=== PATIENT | female | born 1955 | race Caucasian/White ===

== ENCOUNTER 2016-08-27 09:55 | Outpatient (CLI) | payer MEDICARE, SELFPAY ==
[2016-08-27 11:22] LABS: #Eosinphils 0.1 thou/uL (0.0-0.7); #Lymphocytes 1.9 thou/uL (1.20-3.40); #Monocytes 0.4 thou/uL (0.11-0.59); #Neutrophils 3.7 thou/uL (1.40-6.50); %Basophils 0.6 % (0.0-1.0); %Eosinophils 2.4 % (0.0-10.0); %Lymphocytes 30.6 % (21.0-51.0); %Neutrophils 60.5 % (42.0-75.0); Hemoglobin 15.4 g/dL (12.0-16.0); Mean Corpuscular HGB CONC 33.3 g/dL (32.0-36.0); Mean Corpuscular Hemoglobin 29.5 pg (27.0-31.0); Mean Corpuscular Volume 88.7 fl (81.0-99.0); Mean Platelet Volume 7.4 fL (7.4-10.4); Platelet Count 268 thou/uL (130-400); RBC Distribution Width 13.4 % (11.5-14.5); Red Blood Cell (RBC) Count 5.23 mill/uL (4.20-5.40); White Blood Cell (WBC) Count 6.2 thou/uL (4.8-10.8)
[2016-08-27 11:39] LABS: ALT (SGPT) 28 U/L (0-55); AST (SGOT) 27 U/L (5-34); Alkaline Phosphatase 97 U/L (40-150); Anion Gap 12 mmol/L (10-20); BUN (Urea Nitrogen) 20 mg/dL (9.8-20.1); Bilirubin, Total 0.4 mg/dL (0.2-1.2); Calc. Creatinine Clearance 0 mL/min (70-130); Calcium 9.8 mg/dL (7.8-10.44); Carbon Dioxide 33 mmol/L (22-29); Cardiac Risk 4.7 (Less than 4.5); Chloride 104 mmol/L (98-107); Cholesterol 163 mg/dL (< 200 Desired); Estimated GFR-MDRD 65; Globulin 3.1 g/dL (2.4-3.5); Glucose 99 mg/dL (70-105); HDL Cholesterol 35 mg/dL (>60 Neg Risk); LDL Cholesterol, Calculated 78 mg/dL; Potassium 3.8 mmol/L (3.5-5.1); Protein, Total 7.1 g/dL (6.0-8.3); Sodium 145 mmol/L (136-145); Triglycerides 248 mg/dL (Less than 150)
== END 2016-08-27 09:56 ==
LOC: HPCALD 09:55
PROVIDERS: ATTEND Family Medicine
DX: I10 Essential (primary) hypertension (principal); E78.5 Hyperlipidemia, unspecified
CPT/HCPCS: 36415; 80053; 80061; 84443; 85025

== ENCOUNTER 2016-08-30 15:09 | Emergency (ER) | payer MEDICARE, MEDICAID ==
[2016-08-30 15:43] LABS: #Eosinphils 0.1 thou/uL (0.0-0.7); #Monocytes 0.4 thou/uL (0.11-0.59); #Neutrophils 3.4 thou/uL (1.40-6.50); %Basophils 0.6 % (0.0-1.0); %Eosinophils 2.5 % (0.0-10.0); %Lymphocytes 33.5 % (21.0-51.0); %Monocytes 6.5 % (0.0-10.0); Hemoglobin 13.3 g/dL (12.0-16.0); Mean Corpuscular HGB CONC 32.6 g/dL (32.0-36.0); Mean Corpuscular Hemoglobin 28.6 pg (27.0-31.0); Mean Corpuscular Volume 87.7 fl (81.0-99.0); Mean Platelet Volume 8.1 fL (7.4-10.4); Platelet Count 270 thou/uL (130-400); RBC Distribution Width 13.1 % (11.5-14.5); Red Blood Cell (RBC) Count 4.65 mill/uL (4.20-5.40)
[2016-08-30 15:59] LABS: ALT (SGPT) 15 U/L (0-55); AST (SGOT) 20 U/L (5-34); Albumin 3.9 g/dL (3.5-5.0); Alkaline Phosphatase 77 U/L (40-150); Anion Gap 11 mmol/L (10-20); BUN (Urea Nitrogen) 23 mg/dL (9.8-20.1); Bilirubin, Total 0.4 mg/dL (0.2-1.2); Calc. Creatinine Clearance 0 mL/min (70-130); Calcium 9.3 mg/dL (7.8-10.44); Carbon Dioxide 28 mmol/L (22-29); Chloride 105 mmol/L (98-107); Estimated GFR-MDRD 41; Glucose 103 mg/dL (70-105); Protein, Total 6.9 g/dL (6.0-8.3); Sodium 141 mmol/L (136-145)
[2016-08-30 16:04] LABS: Potassium 2.9 mmol/L (3.5-5.1)
[2016-08-30] MEDS ORDERED: traMADol HCl 50 MG TAB ONE (16:18)
[2016-08-30] MEDS ORDERED: Potassium Chloride 20 MEQ TAB ONE (16:18)
--- NOTE | 2016-08-30 20:38 | CT ---
CT OF THE BRAIN WITHOUT CONTRAST 08/30/[address] of the brain was performed for evaluation of headache and nausea. 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 Comparison is made with the 03/07/09 CT scan. Today's exam shows the ventricles to be normal in size with no shift. No intracranial bleeding, extr a-axial hematoma, or subarachnoid blood was seen. There is no sign of mass or edema. A small focal l ow density area in the right frontal lobe is probably due to an old stroke. I can see changes here o n the 2009 CT, so it is not new. The calvarium appears intact. The visible paranasal sinuses are aisha ar. IMPRESSION: 1. No acute intracranial findings. 2. Prior coil or clip is seen at the base of the skull from the patient's prior aneurysm. 3. 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 POS: HOME
== END 2016-08-30 16:24 | disposition home or self-care (01) ==
LOC: BURERS 15:09
DX: S23.3XXA Sprain of ligaments of thoracic spine, initial encounter (principal); K21.9 Gastro-esophageal reflux disease without esophagitis; E78.5 Hyperlipidemia, unspecified; I10 Essential (primary) hypertension; F17.210 Nicotine dependence, cigarettes, uncomplicated; Z79.899 Other long term (current) drug therapy; X58.XXXA Exposure to other specified factors, initial encounter
CPT/HCPCS: 36415; 70450; 80053; 85025

== ENCOUNTER 2017-06-15 07:57 | Emergency (ER) | payer MEDICARE, MEDICAID ==
[2017-06-15] MEDS ORDERED: Ketorolac Tromethamine 60 MG/2 ML VIAL ONE (08:12)
== END 2017-06-15 08:27 | disposition home or self-care (01) ==
LOC: BURERS 07:57
DX: S29.012A Strain of muscle and tendon of back wall of thorax, initial encounter (principal); K21.9 Gastro-esophageal reflux disease without esophagitis; E78.5 Hyperlipidemia, unspecified; I10 Essential (primary) hypertension; F17.210 Nicotine dependence, cigarettes, uncomplicated; X50.9XXA Other and unspecified overexertion or strenuous movements or postures, initial encounter
CPT/HCPCS: 96372; J1885

== ENCOUNTER 2019-06-05 00:32 | Emergency (ER) | payer MEDICARE, MEDICAID ==
[2019-06-05] MEDS ORDERED: Lidocaine 1% w/Epinephrine 1:100K 30 ML VIAL ONE (00:47)
[2019-06-05] MEDS ORDERED: Adacel (T-DAP) 0.5 ML SYRINGE ONE (01:04)
[2019-06-05] MEDS ORDERED: Bacitracin 1 PK ONE (01:13)
== END 2019-06-05 01:15 | disposition home or self-care (01) ==
LOC: BURERS 00:32
DX: S41.111A Laceration without foreign body of right upper arm, initial encounter (principal); K21.9 Gastro-esophageal reflux disease without esophagitis; E78.5 Hyperlipidemia, unspecified; E78.00 Pure hypercholesterolemia, unspecified; I10 Essential (primary) hypertension; F17.210 Nicotine dependence, cigarettes, uncomplicated; Z23 Encounter for immunization; Z79.82 Long term (current) use of aspirin; Z79.899 Other long term (current) drug therapy; W18.30XA Fall on same level, unspecified, initial encounter
CPT/HCPCS: 12002; 90471; 90715; J2001